=== PATIENT | female | born 1995 | race Caucasian/White ===

== ENCOUNTER → 2017-08-27 | Outpatient (CLI) | payer OTHER ==
--- NOTE | 2017-09-03 08:55 | EEG PRO FEE REPORT ---
EEG INTERPRETATION PATIENT NAME: PANFILO GALLEGO ROOM#: ORDER#: [id number] DATE OF STUDY: 08/27/2017 : 1995 REFERRING MD: FRANK RAMIREZ M.D. DIAGNOSIS: Seizures REPORT The background activity consists of 8-9 Hz alpha of moderate duration. No clear focal slowing, amplitude asymmetry, or epileptiform discharges are seen. The record is bilaterally synchronous. Hyperventilation elicits marked build up with return to baseline in less than a minute. IMPRESSION Normal EEG INTERPRETING PHYSICIAN: JEMIMA HENRIQUEZ M.D. /: MARYBETH TT: [id number] ID: [id number] /: [id number] TD: [id number] JOB: [id number] cc:Michael PHILLIPS M.D. >
== END ==
LOC: NEURO 08:39
PROVIDERS: ATTEND Pediatrics
DX: G40.89 Other seizures (principal)
CPT/HCPCS: 95819